=== PATIENT | male | born 1975 | race Caucasian/White ===

== ENCOUNTER → 2022-04-27 10:27 | Outpatient (CLI) | payer OTHER, MEDICAID, SELFPAY ==
--- NOTE | 2022-04-27 | DI.MRI.S_ITS ---
PROCEDURE: MR ELBOW RT WO CON INDICATIONS: RIGHT ARM PAIN TECHNIQUE: Noncontrast coronal proton density fast spin echo and T2 fast spin echo with fat saturation, axial and sagittal T1 spin echo and T2 fast spin echo with fat saturation through the elbow. COMPARISON: None. FINDINGS: Image quality: There is inhomogeneous fat saturation. Lateral structures: The lateral ulnar collateral ligament and radial collateral ligament both appear intact. The overlying common extensor tendon demonstrates tendinopathy with mild intrasubstance partial tearing and mild peritendinous edema. Medial structures: The ulnar collateral ligament appears intact. The overlying common flexor tendon appears intact. The ulnar nerve appears normal in size and signal within the cubital tunnel. Anterior structures: There is tendinopathy of the biceps tendon with moderate partial tearing at its insertion on the radial tuberosity. There is associated mild peritendinous edema along the distal biceps tendon. In addition, there is also edema along the myotendinous junction of the biceps tendon proximally which is partially visualized. The brachialis tendon appears intact. No bicipitoradial bursal fluid. The median and radial neurovascular bundles appear normal; no focal muscle atrophy to suggest nerve impingement. Posterior structures: The conjoint triceps tendon from the long and lateral heads appears intact. The medial head of the triceps tendon also appears normal, with direct muscle insertion onto the olecranon. No olecranon bursal fluid. Bone and cartilage: No bone marrow contusions or fractures. No osteochondral lesions. IMPRESSION: 1. Tendinopathy of the biceps tendon distally with moderate partial tearing at its insertion associated with mild peritendinous edema. 2. Edema at the myotendinous junction of the biceps tendon is suggestive of a mild to moderate strain but is incompletely visualized on the current study. 3. Tendinopathy with mild intrasubstance partial tearing and mild peritendinous edema along the origin of the common extensor tendon. Dictated by: Refugio Berkowitz M.D. on 04/29/2022 at 1:46 Approved by: Refugio Berkowitz M.D. on 04/29/2022 at 1:54
== END ==
PROVIDERS: PCP Family Medicine; Referring Provider Orthopaedic Surgery; Visit Provider Orthopaedic Surgery
DX: S46.211A Strain of muscle, fascia and tendon of other parts of biceps, right arm, initial encounter (principal); S56.511A Strain of other extensor muscle, fascia and tendon at forearm level, right arm, initial encounter; M79.601 Pain in right arm
CPT/HCPCS: 73221